=== PATIENT | male | born 1980 | race Caucasian/White ===

== ENCOUNTER 2016-09-11 15:02 | Inpatient (IN) | payer OTHER ==
[~2016-09-11] VITALS: Ht 185.4 cm; Wt 138.3 kg
--- NOTE | ~2016-09-11 | HC ---
[facility] [place] [address] CONSULTATION Name: KEELYDAKOTAVIRAL Room #: 423-1 ADM IN M.R.#: [id number] Admission: 09/11/16 Attend Phys: Savage Boss MD Discharge: Date of : 84 Report #: [id number] THIS REPORT FOR: //name// CC: Laurent Boss REASON FOR CONSULTATION: Bowel obstruction in this patient with previous renal transplant. HISTORY OF PRESENT ILLNESS: The patient is well to me from previous medical care. 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 He has had a stable creatinine value in the mid 1 range since his transplantation in 2011. He is maintained on immunosuppression, which includes tacrolimus 4 mg b.i.d., mycophenolate 360 mg b.i.d. and is steroid free at this point. The patient states that he was in his usual state of good health until he was driving to work on the day of admission when he developed the acute onset of abdominal pain. This was very severe by his description. He has a history of previous hernia repair surgery in 01/2016, which required partial resection of small bowel and colon with appendectomy. He has been followed by Dr. Dietrich with anticipated additional abdominal surgery for recurrent hernia. The patient has been attempting to lose weight without much success. He denies fevers or chills. He does suffer from chronic diarrhea. PAST MEDICAL HISTORY: Otherwise remarkable for Alport syndrome with renal failure. He has a history of meningitis in 2007. He underwent renal transplantation in 2011. He has known sleep apnea on CPAP therapy, which he uses regularly. He has an indwelling left arm AV fistula. He has a history of gout, and GERD. MEDICATIONS: On admission include propranolol 20 mg b.i.d., mycophenolate 540 mg b.i.d., alprazolam 1 mg p.r.n., carvedilol 25 mg b.i.d., torsemide 40 mg daily, amlodipine 10 mg b.i.d., Nexium 80 mg q.a.m., allopurinol 100 mg q.a.m., Prograf 4 mg b.i.d. ALLERGIES: REPORTED TO [facility]. PERSONAL AND SOCIAL HISTORY: The patient does use alcohol. He denies substance abuse. FAMILY HISTORY: Negative for renal disease. REVIEW OF SYSTEMS: Remarkable as described in the history of present illness. He denies fevers, chills, sweats, shortness of breath, productive cough, hemoptysis, chest pain, palpitations. [address] [address] CONSULTATION Name: VIRAL MOJICAN Room #: 423-1 ADM IN M.R.#: [id number] Admission: 09/11/16 Attend Phys: Savage Boss MD Discharge: Date of : 84 Report #: [id number] PHYSICAL EXAMINATION: GENERAL: Reveals a well-developed, well-nourished male who is heavily tattooed, in no acute distress. VITAL SIGNS: Blood pressure 179/104, temperature 98.2, pulse 90, respirations 18. SKIN: Warm and dry. EXTREMITIES: There is no clubbing, cyanosis, edema or adenopathy. HEENT: The head is normocephalic and atraumatic. There is an NG tube in place. It is draining clear fluid. There is no blood present. NECK: Supple. LUNGS: [place] are grossly clear to percussion and auscultation with good inspiratory and air movement. CARDIOVASCULAR: Reveals a regular rate and rhythm with distant heart sounds and no gross murmur or rub noted. Peripheral pulses are intact. ABDOMEN: Not distended at this time. There is a large hernia, which is nontender in the right mid abdomen. There is no guarding or rebound noted. NEUROLOGIC: Reveals the patient to be alert and cooperative with a nonfocal exam. LABORATORY STUDIES: Available at the time of consultation include sodium 143, potassium 3.5, chloride 107, CO2 21, BUN 22, creatinine 1.5, glucose 123. White blood cell count 7900, hemoglobin 15.5, hematocrit 45.5 and platelet count 178,000. Urinalysis reveals 2+ protein, 1+ blood. ASSESSMENT: 1. Small-bowel obstruction. Post-decompression with NG tube in place. There is no suggestion of incarceration or vascular compromise at this time. 2. Status post renal transplant on dual drug immunosuppression. I will convert him into IV immunosuppression for the time being until his oral intake can be resumed. 3. Alport syndrome. 4. Large ventral hernia with previous bowel resection. 5. Obstructive sleep apnea on CPAP therapy. 6. Hypertension, will convert to parenteral medications for control of his blood pressure at this time. I have had a lengthy discussion with the patient and his mother this morning regarding his medical management. We will follow him closely. Please see orders. <ELECTRONICALLY SIGNED> By: Juanito Mallory MD 09/12/16 1258 [id number] Juanito Mallory MD /nt
--- NOTE | ~2016-09-11 | H ---
[facility] [place] [address] HISTORY AND PHYSICAL Name: VIRAL MOJICA Room #: 423-1 ADM IN M.R.#: [id number] Admission: 09/11/16 Attend Phys: Savage Boss MD Discharge: Date of : 84 Report #: [id number] THIS REPORT FOR: //name// CC: Dr. Jose Harris DO Savage Boss DATE OF SERVICE: 09/11/2016 CHIEF COMPLAINT: Abdominal pain. HISTORY OF PRESENT ILLNESS: The patient is a 36-year-old male with history of hypertension; history of renal transplant, on immunosuppressive; history of Alport syndrome; history of gastric aneurysmal triple surgical repair with last hernia repair in 01/2016 presented to the Emergency Room complaining of abdominal pain. The patient stated that he normally has some abdominal discomfort. He has had increasing abdominal pain today. He has been also with nausea and vomiting. He has had multiple loose stools today. No history of any fever or chills. No shortness of breath. Workup in the Emergency Room included a CT of the abdomen and pelvis which showed partial small-bowel obstruction. There was also hernia through the right lower abdominal wall containing numerous bowel loops. Some of the bowel loops are dilated consistent with partial small-bowel obstruction. Surgeon, Dr. Viramontes has been consulted from the Emergency Room. He has recommended placement of an NG tube. PAST MEDICAL HISTORY: Significant for: 1. Sleep apnea. 2. Alport syndrome status post transplant. 3. No history of diabetes. No history of any coronary artery disease. The patient was admitted for incarcerated abdominal wall hernia in 01/2016, underwent exploratory laparotomy with extensive lysis of adhesions, segmental small bowel resection, ileocecectomy with enterocolic reanastomosis, debridement of the ischemic abdominal wall fascia, hernia sac, history of gastroesophageal reflux disease, obesity. 4. History of allergy to DEXTROMETHORPHAN. FAMILY HISTORY: Significant for renal disease and hypertension. ALLERGIES: Allergic to DEXTROMETHORPHAN, please look at the nursing documentation for reaction. HOME MEDICATIONS: Please look at the nursing documentation. Home meds were [facility] [address] [place] [address] HISTORY AND PHYSICAL Name: VIRAL MOJICA Room #: 423-1 ADM IN [facility].#: [id number] Admission: 09/11/16 Attend Phys: Savage Boss MD Discharge: Date of : 84 Report #: [id number] reviewed. REVIEW OF SYSTEMS: CONSTITUTIONAL: He has gained some weight. EYES: No change in vision. THROAT: Denies any sore throat. CARDIOVASCULAR: No chest pain, dizziness, palpitations. RESPIRATORY: No cough or expectoration. GASTROINTESTINAL: As above. GENITOURINARY: No dysuria, hematuria. NEUROLOGIC: No focal numbness or weakness of the extremities. PSYCHIATRIC: No anxiety or depression. A 12-point review of system is negative other than the positive and negative dictated in the history of present illness and the review of system. PHYSICAL EXAMINATION: VITAL SIGNS: Blood pressure is 190/110, heart rate of 70 per minute, afebrile. GENERAL: The patient is awake and alert, not in acute respiratory distress. EYES: Pupils equal, reactive to light, nonicteric conjunctivae. THROAT: Appears normal. NECK: Supple, no JVD, no bruit, no lymphadenopathy. CARDIOVASCULAR SYSTEM: S1, S2, negative S3, no murmur. CHEST: Bilateral air entry present. Clear on auscultation. ABDOMEN: Soft, bowel sounds present, no mass, no organomegaly. There is diffuse tenderness noted. No guarding, no rebound tenderness. There is tenderness, more in the right lower quadrant. PERIPHERY: No pedal edema. No calf tenderness. Dorsalis pedis 1+. NEUROLOGICAL: The patient is able to move all 4 extremities. LABORATORY DATA: Reviewed. UA revealed 0 wbc, 0 rbc, 2+ protein, 1+ blood. White count is 12.6 with normal hemoglobin and hematocrit, platelet is 169. BUN and creatinine are 27 and 1.5, bicarbonate is 18, potassium is 4.4, calcium is 10.2, bilirubin is 1.3, lipase 157. CT of the abdomen and pelvis showed marked atrophy of the kidneys and also a transplant kidney in the right pelvis with no evidence of hydronephrosis. There is hernia through the right lower abdominal wall containing numerous bowel loops, some of them were dilated consistent with partial small-bowel obstruction. There is a hernia mesh material in the right lower quadrant that has become incompetent. ASSESSMENT AND PLAN: 1. Partial small-bowel obstruction. The patient will be kept n.p.o. NG tube has been placed as per surgery recommendation. The patient will be continued on IV fluids. We will repeat a chest x-ray of the abdomen in the morning. 2. History of Alport syndrome. 3. Status post renal transplant, on immunosuppressive. The patient will be continued on immunosuppressive. We will clamp the NG tube after administration [facility] [address] [place] [address] HISTORY AND PHYSICAL Name: VIRAL MOJICA Room #: 423-1 ADM IN M.R.#: [id number] Admission: 09/11/16 Attend Phys: Savage Boss MD Discharge: Date of : 84 Report #: [id number] of immunosuppressive agent. The patient is on Myfortic and tacrolimus at home. Nephrology will also be consulted. 4. Some mild acute renal insufficiency. The patient will be started on IV fluid. We will repeat our labs in the morning. 5. History of hypertension. The patient will be placed on IV hydralazine p.r.n. 6. Deep venous thrombosis prophylaxis. The patient will be placed on SCD on the leg for deep venous thrombosis prophylaxis. The patient will also be placed on Protonix IV. Treatment plan has been explained to the patient and the patient's mother at bedside in detail. By: [id number] Savage Boss MD /nt
[~2016-09-11 15:02] MED LIST: ABILIFY15 MG PO; ABILIFY30 MG PO; ALLOPURINOL 10100 M1 PO; ALPRAZOLAM; AMBIEN PO; AMLODIPINE BESY10 MG PO; BLEPH-105 ML OP; COREG25 MG PO; DEMADEX20 MG PO; FLONASE 0.05%50 MCG NASAL; FUROSEMIDE 20 M20 M1 PO; KEFLEX500 MG PO; LEVAQUIN 500 M500 MG PO; MYFORTIC180 MG PO; MYFORTIC360 MG PO; NEXIUM40 MG PO; NORCO 10-325 T1 EACH PO; NORCO 5-325 TA1 EACH PO; NORVASC10 MG PO; ONDANSETRON HCL4 M2 PO; OXYCODONE-APAP1 EAC6 PO; PERCOCET 5-3251 EACH PO; PHOSLO667 MG; PRISTIQ50 M1 PO; PRISTIQ50 MG PO; PROGRAF1 MG PO; PROPRANOLOL; PROPRANOLOL 20M20 M1 PO; PROVENTIL HFA6.7 G1 INH; SENSIPAR 30 MG30 M1 PO; SENSIPAR60 MG PO; XANAX1 MG PO; ZYLOPRIM
[2016-09-11 15:19] VITALS: BP 143/90
[2016-09-11 16:19] LABS: HEMATOCRIT 46.8 % (42.0-52.0); HEMOGLOBIN 15.9 gm/dL (14.0-18.0); MCH 29.4 pg (26.0-34.0); MCV 86.4 fL (80.0-100.0); PLATELET COUNT 169 thou/uL (150-400); RBC 5.42 mil/uL (4.50-6.00); RDW 14.4 % (10.5-14.5); WBC 12.6 thou/uL (4.0-11.0)
[2016-09-11 16:21] LABS: MANUAL DIFF YES
[2016-09-11 16:28] LABS: CALCIUM 10.2 mg/dL (8.5-10.1); CREATININE 1.5 mg/dL (0.6-1.3); POTASSIUM 4.4 mmol/L (3.5-5.1)
[2016-09-11 16:32] LABS: ALBUMIN 4.1 g/dL (3.4-5.0); DIRECT BILIRUBIN 0.1 mg/dL (<0.1-0.3); TOTAL BILIRUBIN 1.3 mg/dL (<0.1-1.0); TOTAL PROTEIN 7.5 g/dL (6.4-8.2)
[2016-09-11 16:44] LABS: TOTAL CELL COUNT 100
[2016-09-11 16:45] LABS: ANISOCYTOSIS 1+; POLYCHROMASIA OCCASIONAL
[2016-09-11 18:03] LABS: URINE BILIRUBIN NEGATIVE (Negative); URINE BLOOD 1+ (Negative); URINE COLOR YELLOW; URINE GLUCOSE-RANDOM* NEGATIVE (Negative); URINE KETONES NEGATIVE (Negative); URINE NITRITE NEGATIVE (Negative); URINE PROTEIN (DIPSTICK) 2+ (Negative); URINE SPECIFIC GRAVITY 1.025 (1.003-1.035); URINE UROBILINOGEN 0.2 E.U./dl (0.2-1.0)
[2016-09-11 18:09] LABS: BACTERIA 1-9 Few /HPF (None Seen); CASTS None Seen /LPF (None Seen); CRYSTALS None Seen /LPF (None Seen); SQUAMOUS 0-3 Few /LPF (0-3); URINE RBC None Seen /HPF (0-2); URINE WBC None Seen /HPF (0-5)
[2016-09-11 19:50] VITALS: BP 183/111
[2016-09-12 04:03] VITALS: BP 153/106
[2016-09-12 07:15] LABS: HEMATOCRIT 45.5 % (42.0-52.0); HEMOGLOBIN 15.5 gm/dL (14.0-18.0); MCH 29.5 pg (26.0-34.0); MCV 86.7 fL (80.0-100.0); PLATELET COUNT 178 thou/uL (150-400); RBC 5.26 mil/uL (4.50-6.00); RDW 14.2 % (10.5-14.5); WBC 7.9 thou/uL (4.0-11.0)
[2016-09-12 07:21] LABS: MANUAL DIFF YES
[2016-09-12 07:26] LABS: CREATININE 1.5 mg/dL (0.6-1.3); MAGNESIUM 1.3 mg/dL (1.8-2.4); POTASSIUM 3.5 mmol/L (3.5-5.1)
[2016-09-12 08:32] VITALS: BP 176/107
[2016-09-12 08:48] LABS: ABSOLUTE NEUTROPHILS 7.1 thou/uL (1.4-8.2); TOTAL CELL COUNT 100
[2016-09-12 08:49] LABS: PLATELET ESTIMATE NORMAL
[2016-09-12 10:29] VITALS: BP 179/104
[2016-09-12 15:15] VITALS: BP 183/106
[2016-09-12 20:00] VITALS: BP 167/120
[2016-09-13] VITALS: BP 140/85
[2016-09-13 04:00] VITALS: BP 145/99
[2016-09-13 08:17] VITALS: BP 158/102
[2016-09-13 10:40] LABS: ABSOLUTE NEUTROPHILS 4.5 thou/uL (1.4-8.2); BASOPHILS 0.3 % (0.0-2.0); EOSINOPHILS 1.6 % (0.0-3.0); HEMATOCRIT 38.4 % (42.0-52.0); MCH 29.7 pg (26.0-34.0); MCHC 34.7 g/dL (28.0-37.0); MCV 85.5 fL (80.0-100.0); MONOCYTES 8.8 % (1.0-8.0); PLATELET COUNT 145 thou/uL (150-400); POLYS 72.3 % (36.0-66.0); RDW 14.3 % (10.5-14.5); WBC 6.2 thou/uL (4.0-11.0)
[2016-09-13 10:41] LABS: HEMOGLOBIN 13.3 gm/dL (14.0-18.0); MANUAL DIFF NO
[2016-09-13 10:48] LABS: ALBUMIN 3.1 g/dL (3.4-5.0); CALCIUM 8.6 mg/dL (8.5-10.1); CREATININE 1.4 mg/dL (0.6-1.3); MAGNESIUM 1.4 mg/dL (1.8-2.4); PHOSPHORUS 2.3 mg/dL (2.5-4.9); POTASSIUM 3.3 mmol/L (3.5-5.1)
[2016-09-13 12:37] VITALS: BP 158/102
== END 2016-09-13 13:20 | disposition home or self-care (01) | DRG 394 ==
LOC: ER 15:02 → 4E 18:00 → EROBS 18:00 → 4E 18:51
PROVIDERS: Internal Medicine; Internal Medicine Nephrology; Nurse Practitioner
DX: K43.0 Incisional hernia with obstruction, without gangrene (principal); Z68.41 Body mass index [BMI] 40.0-44.9, adult; Q87.81 Alport syndrome; Z94.0 Kidney transplant status; I10 Essential (primary) hypertension; K21.9 Gastro-esophageal reflux disease without esophagitis; F41.9 Anxiety disorder, unspecified; G47.33 Obstructive sleep apnea (adult) (pediatric); F12.90 Cannabis use, unspecified, uncomplicated; E66.9 Obesity, unspecified; Z28.21 Immunization not carried out because of patient refusal; Z88.8 Allergy status to other drugs, medicaments and biological substances; M10.9 Gout, unspecified; Z84.1 Family history of disorders of kidney and ureter; Z82.49 Family history of ischemic heart disease and other diseases of the circulatory system; Z79.899 Other long term (current) drug therapy; Z83.3 Family history of diabetes mellitus
CPT/HCPCS: 10183

== ENCOUNTER → 2016-12-26 | Outpatient (CLI) | payer OTHER | LOC: CAT 09:22 | DX: K43.9 Ventral hernia without obstruction or gangrene (principal); R16.1 Splenomegaly, not elsewhere classified; Z94.0 Kidney transplant status ==